=== PATIENT | female | born 1960 ===

== ENCOUNTER 2017-06-09 13:33 | Emergency (ER) | payer OTHER ==
[2017-06-09 13:47] VITALS: BP 121/68; TEMP 98.5
[2017-06-09] MEDS ORDERED: Sodium Chloride 0.9% 1,000 ML IV STA (14:25)
--- NOTE | 2017-06-09 14:33 | ED PDOC ---
HPI: Abdomen Time Seen by Provider: 06/09/17 14:02 Chief Complaint (Nursing): Abdominal Pain Chief Complaint (Provider): Abdominal Pain History Per: Patient Onset/Duration Of Symptoms: Days Current Symptoms Are (Timing): Still Present Location Of Pain/Discomfort: RUQ Quality Of Discomfort: "Pain" Associated Symptoms: denies: Fever, Diarrhea Additional Complaint(s): 57 year old female, referred by PMD, presents to the ED for RUQ pain associated with nausea. Patient has history of gallstones and was scheduled for cholecystectomy. Denies fever and diarrhea. PMD: Deejay Rosales Past Medical History Reviewed: Historical Data, Nursing Documentation, Vital Signs Vital Signs: Last Vital Signs Temp 98.5 F 06/09/17 13:44 Pulse 105 H 06/09/17 13:44 Resp 18 06/09/17 13:44 BP 121/68 06/09/17 13:44 Pulse Ox 96 06/09/17 16:02 - Medical History PMH: Asthma, Diabetes, HTN - Surgical History Surgical History: Appendectomy - Family History Family History: States: Unknown Family Hx - Immunization History Hx Tetanus Toxoid Vaccination: No Hx Influenza Vaccination: Yes Hx Pneumococcal Vaccination: Yes - Allergies Allergies/Adverse Reactions: Allergies Allergy/AdvReac Type Severity Reaction Status Date / Time aspirin Allergy RASH Verified 06/09/17 13:47 Review of Systems ROS Statement: Except As Marked, All Systems Reviewed And Found Negative Gastrointestinal: Positive for: Nausea, Abdominal Pain (RUQ ) Physical Exam - Reviewed Nursing Documentation Reviewed: Yes Vital Signs Reviewed: Yes - Physical Exam Cardiovascular/Chest: Positive for: Regular Rate, Rhythm. Negative for: Murmur Respiratory: Positive for: Normal Breath Sounds. Negative for: Respiratory Distress Gastrointestinal/Abdominal: Positive for: Normal Exam, Tenderness (to RUQ), Guarding Extremity: Negative for: Calf Tenderness, Swelling - Laboratory Results Result Diagrams: 06/09/17 14:50 06/09/17 14:50 - ECG O2 Sat by Pulse Oximetry: 96 (RA) Medical Decision Making Medical Decision Making: Time: 1429 Plan: -- CMP -- Lipase -- CBC with differentials -- Glucose POC -- Sodium Chloride IV 100 mls/hr -- Abdomen Limited (GB Included) US Time: 1530 Abdomen Ultrasound Results FINDINGS: Body habitus limits this examination significantly. LIVER: Measures 21.0 cm in length. Hepatic parenchyma appears homogeneous overall echogenicity with hepatomegaly in question. No gross mass. No prominent intrahepatic bile duct dilatation. GALLBLADDER: Unremarkable. No gallstones. COMMON BILE DUCT: Measures 3.0 mm. No stones. No dilatation. PANCREAS: The head through proximal body of the pancreas appear unremarkable the remainder grossly obscured by overlying bowel gas. RIGHT KIDNEY: Measures 11.5 cm in length. No prominent hydronephrosis or perinephric fluid collection. No definite urolithiasis is appreciated. AORTA: No aneurysmal dilatation. IVC: Not identified due to obscuring by bowel. OTHER FINDINGS: None . IMPRESSION: Limited study due to body habitus. Hepatomegaly is in question. No gross hepatic mass or prominent intrahepatic biliary duct dilatation. Gallbladder appears unremarkable. No significant dilatation of the common bile duct. Partial imaging of the pancreas. Scribe Attestation: Documented by Maira Rushing, acting as a scribe for Dr. Zain Lilly. Provider Scribe Attestation: All medical record entries made by the Scribe were at my direction and personally dictated by me. I have reviewed the chart and agree that the record accurately reflects my personal performance of the history, physical exam, medical decision making, and the department course for this patient. I have also personally directed, reviewed, and agree with the discharge instructions and disposition. Disposition - Clinical Impression Clinical Impression: Abdominal pain - Patient ED Disposition Is Patient to be Admitted: Transfer of Care - Disposition Disposition: Transfer of Care Disposition Time: 18:58 Condition: FAIR Forms: [employer] (Frisian) Patient Signed Over To: Chris Dugan
[2017-06-09 15:03] LABS: BASO # 0.1 K/uL (0.0-0.2); BASO % 0.6 % (0.0-2.0); EOS % 0.3 % (0.0-4.0); HEMOGLOBIN 11.4 g/dL (12.0-16.0); LYMPH # 1.6 K/uL (1.0-4.3); LYMPH % 14.5 % (20.0-40.0); MEAN CELL VOLUME 76.4 fl (81.0-99.0); MEAN CORPUSCULAR HEMOGLOBIN 24.4 pg (27.0-31.0); MEAN CORPUSCULAR HGB CONC 31.9 g/dL (33.0-37.0); MEAN PLATELET VOLUME 8.8 fl (7.2-11.7); MONO # 1.1 K/uL (0.0-0.8); MONO % 9.9 % (0.0-10.0); NEUT # 8.3 K/uL (1.8-7.0); NEUT % 74.7 % (50.0-75.0); RBC 4.66 Mil/uL (3.80-5.20); RED CELL DISTRIBUTION WIDTH 15.7 % (11.5-14.5); WHITE BLOOD COUNT 11.2 K/uL (4.8-10.8)
[2017-06-09 15:24] LABS: ALB/GLOB RATIO 0.8 (1.0-2.1); ALBUMIN 3.6 g/dL (3.5-5.0); ALT/SGPT 37 U/L (9-52); AST/SGOT 28 U/L (14-36); BLOOD UREA NITROGEN 13 mg/dl (7-17); CALCIUM 8.4 mg/dL (8.4-10.2); GFR AFRICAN-AMERICAN > 60; GFR NON-AFRICAN AMERICAN > 60; LIPASE 75 U/L (23-300)
--- NOTE | 2017-06-09 15:32 | US ---
HISTORY: RUQ pain h/o gallstones COMPARISON: None. TECHNIQUE: Sonographic evaluation of the right upper quadrant of the abdomen. FINDINGS: Body habitus limits this examination significantly. LIVER: Measures 21.0 cm in length. Hepatic parenchyma appears homogeneous overall echogenicity with hepatomegaly in question. No gross mass. No prominent intrahepatic bile duct dilatation. GALLBLADDER: Unremarkable. No gallstones. COMMON BILE DUCT: Measures 3.0 mm. No stones. No dilatation. PANCREAS: The head through proximal body of the pancreas appear unremarkable the remainder grossly obscured by overlying bowel gas. RIGHT KIDNEY: Measures 11.5 cm in length. No prominent hydronephrosis or perinephric fluid collection. No definite urolithiasis is appreciated. AORTA: No aneurysmal dilatation. IVC: Not identified due to obscuring by bowel. OTHER FINDINGS: None . IMPRESSION: Limited study due to body habitus. Hepatomegaly is in question. No gross hepatic mass or prominent intrahepatic biliary duct dilatation. Gallbladder appears unremarkable. No significant dilatation of the common bile duct. Partial imaging of the pancreas.
[2017-06-09] MEDS ORDERED: Iohexol 300 100 ML IJ ONE (17:39)
--- NOTE | 2017-06-09 19:01 | CT ---
PROCEDURE: CT Abdomen and Pelvis with contrast HISTORY: abd pain COMPARISON: None. TECHNIQUE: Contrast dose: 95 mL Omnipaque 300 Radiation dose: Total exam DLP = 1036.24 mGy-cm. This CT exam was performed using one or more of the following dose reduction techniques: Automated exposure control, adjustment of the mA and/or kV according to patient size, and/or use of iterative reconstruction technique. FINDINGS: LOWER THORAX: Bilateral lower lobe linear scar/ atelectasis. LIVER: Hepatic cirrhosis. Mild hepatomegaly. Liver measures 22.2 cm craniocaudal. Nodular contour. No mass. No biliary ductal dilatation. GALLBLADDER AND BILE DUCTS: No calcified gallstones. No mural thickening. Stranding of the fat inferior to the cecum, and about the inferior right hepatic lobe, likely related to adjacent ascending colon. See below. PANCREAS: Unremarkable. No gross lesion or ductal dilatation. SPLEEN: Splenomegaly. The spleen measures approximately 16.1 cm in greatest dimension. ADRENALS: Unremarkable. No mass. KIDNEYS AND URETERS: Unremarkable. No hydronephrosis. No solid mass. VASCULATURE: Unremarkable. No aortic aneurysm. BOWEL: Status post appendectomy. No bowel obstruction. Mild mural thickening of the cecum and ascending colon, nonspecific. Mild pericolic stranding/ inflammation. Consider the possibility of focal colitis. APPENDIX: Status post appendectomy PERITONEUM: Unremarkable. No free fluid. No free air. LYMPH NODES: Unremarkable. No enlarged lymph nodes. BLADDER: Unremarkable. REPRODUCTIVE: Normal uterus BONES: No acute fracture. OTHER FINDINGS: None. IMPRESSION: Hepatosplenomegaly. Hepatic cirrhosis. Mural thickening of the cecum and ascending colon, nonspecific. Possible focal colitis. No other acute abnormalities.
--- NOTE | 2017-06-09 19:23 | ED PDOC ---
- Laboratory Results Result Diagrams: 06/09/17 14:50 06/09/17 14:50 - ECG O2 Sat by Pulse Oximetry: 96 (RA) Pulse Ox Interpretation: Normal Medical Decision Making Medical Decision Making: Time: 1914 Patient signed out to me by Dr. Lilly pending CT Abdomen, reevaluation and disposition. Time: 1924 CT Abdomen FINDINGS: LOWER THORAX: Bilateral lower lobe linear scar/ atelectasis. LIVER: Hepatic cirrhosis. Mild hepatomegaly. Liver measures 22.2 cm craniocaudal. Nodular contour. No mass. No biliary ductal dilatation. GALLBLADDER AND BILE DUCTS: No calcified gallstones. No mural thickening. Stranding of the fat inferior to the cecum, and about the inferior right hepatic lobe, likely related to adjacent ascending colon. See below. PANCREAS: Unremarkable. No gross lesion or ductal dilatation. SPLEEN: Splenomegaly. The spleen measures approximately 16.1 cm in greatest dimension. ADRENALS: Unremarkable. No mass. KIDNEYS AND URETERS: Unremarkable. No hydronephrosis. No solid mass. VASCULATURE: Unremarkable. No aortic aneurysm. BOWEL: Status post appendectomy. No bowel obstruction. Mild mural thickening of the cecum and ascending colon, nonspecific. Mild pericolic stranding/ inflammation. Consider the possibility of focal colitis. APPENDIX: Status post appendectomy PERITONEUM: Unremarkable. No free fluid. No free air. LYMPH NODES: Unremarkable. No enlarged lymph nodes. BLADDER: Unremarkable. REPRODUCTIVE: Normal uterus BONES: No acute fracture. OTHER FINDINGS: None. IMPRESSION: Hepatosplenomegaly. Hepatic cirrhosis. Mural thickening of the cecum and ascending colon, nonspecific. Possible focal colitis. No other acute abnormalities. Time: [address] Sheridan, who recommends patient to be discharged home with Bentyl and follow up with him in his office. Plan discussed with patient, who is agreeable. She reports pain has improved and she is feeling much better. Instructed to return to ER if symptoms worsen or new symptoms arise. Stable for discharge home. Scribe Attestation: Documented by Sindy Bettencourt acting as a scribe for Chris Dugan MD Provider Attestation: All medical record entries made by the Scribe were at my direction and personally dictated by me. I have reviewed the chart and agree that the record accurately reflects my personal performance of the history, physical exam, medical decision making, and the department course for this patient. I have also personally directed, reviewed, and agree with the discharge instructions and disposition. Disposition Discussed With Dr.: Tapan Sheridan Doctor Will See Patient In The: Office - Clinical Impression Clinical Impression: Abdominal pain - POA Present On Arrival: None - Disposition Disposition: Routine/Home Disposition Time: 21:00 Condition: STABLE Prescriptions: Ciprofloxacin [Cipro] 500 mg PO Q12 #14 tab Dicyclomine [Bentyl] 20 mg PO Q12 PRN #20 tab PRN Reason: abdominal pain/diarrhea Instructions: Stomach Ache and Stomach Upset Forms: [facility] (Ukrainian) Print Language: [place]
[2017-06-09 21:52] VITALS: PULSE 92; RESP 17
[2017-06-09 21:53] VITALS: O2SAT 96
== END 2017-06-09 21:26 | disposition home or self-care (01) ==
LOC: H.ER 13:33
DX: R10.9 Unspecified abdominal pain (principal); E11.9 Type 2 diabetes mellitus without complications; I10 Essential (primary) hypertension; J45.909 Unspecified asthma, uncomplicated
CPT/HCPCS: 74177; 76705; 80053; 82948; 83690; 85025; 96374; 99283; J2270; J7040; Q9967

== ENCOUNTER 2017-08-21 07:14 | Day surgery (SDC) | payer OTHER ==
[2017-08-21] MEDS ORDERED: Lactated Ringer's 500 ML IV ONE (07:55)
[2017-08-21] MEDS ORDERED: Propofol 10 mg/ml Inj (20 ML) ONE (08:18)
[2017-08-21] MEDS ORDERED: Etomidate 20 mg/10ml Inj IV ONE (08:29)
[2017-08-21 09:12] VITALS: RESP 21; TEMP 98; O2SAT 100
[2017-08-21 09:26] VITALS: BP 128/67; PULSE 82
== END 2017-08-21 09:42 | disposition home or self-care (01) ==
LOC: H.ENDO 07:14
PROVIDERS: ATTEND Internal Medicine Gastroenterology
DX: D12.5 Benign neoplasm of sigmoid colon (principal); D12.0 Benign neoplasm of cecum; K64.8 Other hemorrhoids; R10.84 Generalized abdominal pain
CPT/HCPCS: 45385; 82948; 88305; J2001; J2704; J3010; J7120